=== PATIENT | male | born 1985 | race Caucasian/White ===

== ENCOUNTER 2019-04-27 23:02 | Emergency (ER) | payer MEDICAID, OTHER ==
[~2019-04-27] VITALS: Ht 170.2 cm; Wt 86.2 kg
--- NOTE | 2019-04-28 00:45 | NUR ---
PT PRESENTED TO THE ER WITH A C/O RT WRIST PAIN W/ A BUMP ON WRIST.
[2019-04-28 01:13] VITALS: BP 158/77
--- NOTE | 2019-04-28 01:13 | NUR ---
PT REC'D A RT VELCRO WRIST SPLINT. Patient discharged to home in stable condition. Written and verbal after care instructions given. Patient verbalizes understanding of instruction AND RX. PT AMBULATED OUT WITH A STEADY GAIT. VSS
== END 2019-04-28 01:13 | disposition home or self-care (01) ==
LOC: ER 23:05
DX: M25.531 Pain in right wrist (principal)